=== PATIENT | male | born 1990 | race African-American/Black ===

== ENCOUNTER 2020-03-02 23:22 | Emergency (ER) | payer OTHER ==
[~2020-03-02] VITALS: Ht 175.3 cm; Wt 117.9 kg
[2020-03-02] MEDS ORDERED: XARELTO20 MG PO (23:29)
[2020-03-02 23:55] LABS: ABSOLUTE NEUTROPHILS 3.5 thou/uL (1.4-8.2); ANION GAP 18 mmol/L (7-16); BASOPHILS 1.1 % (0.0-2.0); BUN 12 mg/dL (7-18); CALCIUM 8.9 mg/dL (8.5-10.1); CHLORIDE 103 mmol/L (98-107); CO2 19 mmol/L (21-32); CREATININE 1.1 mg/dL (0.7-1.3); EOSINOPHILS 0.7 % (0.0-3.0); GLUCOSE 95 mg/dL (74-106); HEMATOCRIT 43.9 % (42.0-52.0); HEMOGLOBIN 15.4 gm/dL (14.0-18.0); LYMPHOCYTES 32.1 % (24.0-44.0); MCH 35.9 pg (26.0-34.0); MCHC 35.1 g/dL (28.0-37.0); MCV 102.5 fL (80.0-100.0); MONOCYTES 9.5 % (1.0-8.0); PLATELET COUNT 227 thou/uL (150-400); POLYS 56.6 % (36.0-66.0); POTASSIUM 3.6 mmol/L (3.5-5.1); RBC 4.28 mil/uL (4.50-6.00); RDW 14.1 % (10.5-14.5); SODIUM 140 mmol/L (136-145); WBC 6.2 thou/uL (4.0-11.0)
[2020-03-03 00:05] LABS: ALBUMIN 3.7 g/dL (3.4-5.0); SGOT 25 U/L (15-37); SGPT 33 U/L (30-65); TOTAL BILIRUBIN 0.4 mg/dL (0.2-1.0); TOTAL PROTEIN 7.7 g/dL (6.4-8.2); TROPONIN-I <0.06 ng/mL (<0.06)
[2020-03-03] MEDS ORDERED: XARELTO20 MG PO (01:43)
[2020-03-03 02:10] VITALS: BP 138/92
--- NOTE | 2020-03-04 16:01 | EKG ---
[facility] [place] [address] ELECTROCARDIOGRAM REPORT Name: MARIA TERESA JEFFERY Room #: [facility]P [facility] [id number] Admission: 03/02/20 Attend Phys: Discharge: 03/03/20 Date of : 89 Report #: [id number] THIS REPORT FOR: cc: PINA Brower family physician/PCP PINA - [place] family physician/PCP Tyson Bradshaw MD ~ THIS REPORT FOR: //name// [facility] ED Test Date: 2020-03-03 Test Time: 00:04:09 Pat Name: MARIA TERESA JEFFERY Department: Room: Gender: [employer] Consultant: : 1990 Requested By: Lazaro Browne Order Number: [id number] MD: Tyson Bradshaw Measurements Intervals [place] Rate: 79 P: 30 [place]: 121 QRS: 43 QRSD: 82 T: 41 QT: 371 QTc: 426 Interpretive Statements Sinus rhythm Baseline wander in lead(s) V6 No previous ECG available for comparison Electronically Signed On 03-04-2020 16:01:19 CDT by Tyson Bradshaw [email or web address] <ELECTRONICALLY SIGNED> By: Tyson Bradshaw MD 03/04/20 1601 0004 0004 Tyson Bradshaw MD /EPI
== END 2020-03-03 02:12 | disposition home or self-care (01) ==
LOC: ER 23:22
PROVIDERS: Emergency Medicine
DX: I26.99 Other pulmonary embolism without acute cor pulmonale (principal); Z76.0 Encounter for issue of repeat prescription; R42 Dizziness and giddiness; R53.1 Weakness; R20.0 Anesthesia of skin; F17.210 Nicotine dependence, cigarettes, uncomplicated; Z79.899 Other long term (current) drug therapy